=== PATIENT | male | born 1940 | race Caucasian/White ===

== ENCOUNTER 2016-11-05 07:01 | Day surgery (SDC) | payer OTHER ==
[~2016-11-05 07:01] MED LIST: IOHEXOL 350 MG/ML 100ML IJ ONE; LIDOCAINE 2%HCL (LOCAL ANESTH.) INJ 20ML MDV ONE
[2016-11-05] MEDS ORDERED: MIDAZOLAM HCL 1MG/1ML-2 ML VIAL ONE (08:11)
[2016-11-05] MEDS ORDERED: fentaNYL CITRATE 100 MCG/2 ML VL ONE (08:11)
[2016-11-05] MEDS ORDERED: ANGIOMAX 250 MG VIAL IV ONE (08:12)
[2016-11-05] MEDS ORDERED: SODIUM CHL 0.9% 0 ML ONE (08:12)
== END 2016-11-05 15:00 | disposition home or self-care (01) ==
LOC: CARD 07:01
PROVIDERS: ATTEND Internal Medicine Cardiovascular Disease
DX: I25.10 Atherosclerotic heart disease of native coronary artery without angina pectoris (principal); I48.91 Unspecified atrial fibrillation; I34.0 Nonrheumatic mitral (valve) insufficiency; Z95.1 Presence of aortocoronary bypass graft; I21.3 ST elevation (STEMI) myocardial infarction of unspecified site; I50.9 Heart failure, unspecified; I27.2 Other secondary pulmonary hypertension
CPT/HCPCS: 36600; 82805; 93453; C1760; C1894; J1644; J2250; J3010; J7030; Q9967